=== PATIENT | female | born 1980 | race Caucasian/White ===

== ENCOUNTER 2016-08-18 08:57 | Emergency (ER) | payer OTHER ==
[~2016-08-18] VITALS: Ht 170.2 cm; Wt 140.2 kg
[~2016-08-18 08:57] MED LIST: ABILIFY20 M1 PO; ABILIFY30 M1 PO; ATIVAN1 MG PO; CARAFATE1 GM; CARVEDILOL6.25 M1 PO; HYDROCHLOROTHIA25 MG PO; NOR10T PO; PAXIL CR25 MG PO; PAXIL40 MG PO; PRILOSEC40 MG PO; TRAZODONE50 M1 PO; XANAX1 MG PO
[2016-08-18 11:15] LABS: BASOPHIL % 0.5 % (0-2); PLATELET COUNT 226 x10^3mcL (130-400)
[2016-08-18 11:17] LABS: RED CELL DISTRIBUTION WIDTH 21.1 % (11.5-14.5)
[2016-08-18 11:21] LABS: CALCIUM 8.3 mg/dL (8.5-10.1); CARBON DIOXIDE 29.5 mmol/L (21-32); CHLORIDE SERUM 105 mmol/L (98-107); CREATININE SERUM 0.6 mg/dL (0.6-1.0); GFR1 > 60 mL/min; GLUCOSE SERUM 91 mg/dL (74-106); POTASSIUM SERUM 3.9 mmol/L (3.5-5.1); SODIUM SERUM 142 mmol/L (136-145)
[2016-08-18 11:26] LABS: ALKALINE PHOSPHATASE 76 U/L (46-116); ALT/SGPT 19 U/L (14-59); AST/SGOT 16 U/L (15-37); BILIRUBIN TOTAL 0.7 mg/dL (0.20-1.00); LIPASE 86 IU/L (73-393)
[2016-08-18 11:28] LABS: ALBUMIN 3.1 g/dL (3.4-5.0)
[2016-08-18 11:49] LABS: microscopic required? YES
[2016-08-18 11:50] LABS: UA SPECIFIC GRAVITY 1.015 (1.005-1.035)
[2016-08-18 11:51] LABS: urine erythrocyte TRACE (NEGATIVE)
[2016-08-18 12:04] LABS: rbc morphology (normal/abnorm) ABNORMAL (NORMAL)
[2016-08-18 12:35] VITALS: BP 109/84
== END 2016-08-18 12:35 | disposition home or self-care (01) ==
LOC: ED 08:57
PROVIDERS: Emergency Medicine
DX: N39.0 Urinary tract infection, site not specified (principal); M79.1 Myalgia; K21.9 Gastro-esophageal reflux disease without esophagitis; F31.9 Bipolar disorder, unspecified; G47.9 Sleep disorder, unspecified; Z79.891 Long term (current) use of opiate analgesic; Z79.899 Other long term (current) drug therapy; Z88.1 Allergy status to other antibiotic agents; Z88.2 Allergy status to sulfonamides; Z88.0 Allergy status to penicillin
CPT/HCPCS: J1885; Q0162

== ENCOUNTER 2016-08-27 15:05 | Emergency (ER) | payer OTHER ==
[2016-08-27 16:39] LABS: BASOPHIL % 0.8 % (0-2); PLATELET COUNT 264 x10^3mcL (130-400)
[2016-08-27 16:40] LABS: RED CELL DISTRIBUTION WIDTH 20.5 % (11.5-14.5)
[2016-08-27 16:47] LABS: CALCIUM 8.8 mg/dL (8.5-10.1); CHLORIDE SERUM 107 mmol/L (98-107); CREATININE SERUM 0.7 mg/dL (0.6-1.0); GFR1 > 60 mL/min; GLUCOSE SERUM 84 mg/dL (74-106); POTASSIUM SERUM 4.1 mmol/L (3.5-5.1); SODIUM SERUM 141 mmol/L (136-145)
[2016-08-27 17:16] VITALS: BP 147/77
== END 2016-08-27 17:16 | disposition home or self-care (01) ==
LOC: ED 15:05
PROVIDERS: Emergency Medicine
DX: F41.1 Generalized anxiety disorder (principal); F31.9 Bipolar disorder, unspecified
CPT/HCPCS: J1885

== ENCOUNTER 2016-11-24 19:49 | Emergency (ER) | payer OTHER ==
[~2016-11-24] VITALS: Ht 160 cm; Wt 136.1 kg
[2016-11-24 20:58] LABS: BASOPHIL % 1.1 % (0-2); PLATELET COUNT 276 x10^3mcL (130-400)
[2016-11-24 21:01] LABS: RED CELL DISTRIBUTION WIDTH 14.7 % (11.5-14.5)
[2016-11-24 21:06] LABS: CALCIUM 8.5 mg/dL (8.5-10.1); CARBON DIOXIDE 29.2 mmol/L (21-32); CHLORIDE SERUM 110 mmol/L (98-107); CREATININE SERUM 0.8 mg/dL (0.6-1.0); GFR1 > 60 mL/min; GLUCOSE SERUM 93 mg/dL (74-106); POTASSIUM SERUM 3.7 mmol/L (3.5-5.1); SODIUM SERUM 145 mmol/L (136-145)
[2016-11-24 21:11] LABS: ALBUMIN 3.2 g/dL (3.4-5.0); ALKALINE PHOSPHATASE 77 U/L (46-116); ALT/SGPT 22 U/L (14-59); AST/SGOT 16 U/L (15-37); BILIRUBIN TOTAL 0.34 mg/dL (0.20-1.00); TOTAL PROTEIN, SERUM 7.1 g/dL (6.4-8.2)
[2016-11-24 21:22] LABS: UA SPECIFIC GRAVITY <=1.005 (1.005-1.035); microscopic required? YES; urine erythrocyte 3+ (NEGATIVE)
[2016-11-24 22:32] VITALS: BP 126/70
== END 2016-11-24 22:32 | disposition home or self-care (01) ==
LOC: ED 19:49
PROVIDERS: Emergency Medicine
DX: N39.0 Urinary tract infection, site not specified (principal); J45.909 Unspecified asthma, uncomplicated; I10 Essential (primary) hypertension; Z90.49 Acquired absence of other specified parts of digestive tract; Z88.0 Allergy status to penicillin; Z88.2 Allergy status to sulfonamides; Z88.8 Allergy status to other drugs, medicaments and biological substances
CPT/HCPCS: 36415; J1885; J2270; Q0162

== ENCOUNTER 2016-12-02 18:11 | Emergency (ER) | payer OTHER ==
[~2016-12-02] VITALS: Ht 167.6 cm; Wt 140.2 kg
[2016-12-02 19:09] LABS: UA SPECIFIC GRAVITY 1.025 (1.005-1.035); microscopic required? YES; urine erythrocyte NEGATIVE (NEGATIVE)
[2016-12-02 19:26] LABS: AMPHETAMINE QUAL UR NONE DETECTED (NEG <=1000)
[2016-12-02 19:51] LABS: BASOPHIL % 0.6 % (0-2); PLATELET COUNT 283 x10^3mcL (130-400)
[2016-12-02 19:53] LABS: RED CELL DISTRIBUTION WIDTH 15.1 % (11.5-14.5)
[2016-12-02 20:09] LABS: CALCIUM 8.4 mg/dL (8.5-10.1); CARBON DIOXIDE 23.6 mmol/L (21-32); CHLORIDE SERUM 106 mmol/L (98-107); CREATININE SERUM 0.7 mg/dL (0.6-1.0); GFR1 > 60 mL/min; GLUCOSE SERUM 94 mg/dL (74-106); POTASSIUM SERUM 3.4 mmol/L (3.5-5.1); SODIUM SERUM 137 mmol/L (136-145)
[2016-12-02 20:12] LABS: ALBUMIN 3.3 g/dL (3.4-5.0); ALKALINE PHOSPHATASE 83 U/L (46-116); ALT/SGPT 55 U/L (14-59); AMYLASE 33 U/L (25-115); AST/SGOT 44 U/L (15-37); BILIRUBIN TOTAL 0.5 mg/dL (0.20-1.00); LIPASE 120 IU/L (73-393); TOTAL PROTEIN, SERUM 7.6 g/dL (6.4-8.2)
[2016-12-02 21:47] VITALS: BP 103/52
== END 2016-12-02 21:47 | disposition home or self-care (01) ==
LOC: ED 18:11
PROVIDERS: Emergency Medicine
DX: K59.00 Constipation, unspecified (principal); F11.20 Opioid dependence, uncomplicated; E46 Unspecified protein-calorie malnutrition; I10 Essential (primary) hypertension; E66.01 Morbid (severe) obesity due to excess calories; Z88.0 Allergy status to penicillin; Z88.2 Allergy status to sulfonamides
CPT/HCPCS: 83880; J1885; J2405; J7030

== ENCOUNTER 2017-01-22 00:17 | Inpatient (IN) | payer OTHER ==
[~2017-01-22] VITALS: Ht 167.6 cm; Wt 141.5 kg
[~2017-01-22 00:17] MED LIST changes: +PRILOSEC OTC20 M1; -PRILOSEC40 MG PO
--- NOTE | 2017-01-22 00:51 | NUR ---
DR NOLAND AT BEDSIDE FOR MSE.
--- NOTE | 2017-01-22 01:10 | NUR ---
PT PICKED UP BY CT VIA GURNEY NO SX OF DISTRESS NOTED.
--- NOTE | 2017-01-22 01:24 | NUR ---
PT AMBULATED SELF TO RESTROOM WITH SLOW EVEN AND STEADY GAIT.
--- NOTE | 2017-01-22 01:34 | NUR ---
PT MEDICATED PER DR NOLNAD ORDERS. PT EDUCATED ON MEDS AND DENIES ALLERGIES TO MED. PT IV SITE PATENT WITH NO SX OF INFILTRATION NOTED. PT AAOX4, BREATHING WITHOUT DIFFICULTY NO SX OF DISTRESS NOTED.
--- NOTE | 2017-01-22 01:35 | NUR ---
FARM MACHINE OPERATOR AT BEDSIDE.
--- NOTE | 2017-01-22 01:58 | NUR ---
DR NOLAND AT BEDSIDE DISCUSSING PLAN OF CARE.
[2017-01-22 02:02] LABS: AMPHETAMINE QUAL UR NONE DETECTED (NEG <=1000)
[2017-01-22] MEDS ORDERED: DIVALPROEX SOD250 M2 PO (02:20)
[2017-01-22] MEDS ORDERED: TRAMADOL HCL50 MG PO (02:20)
[2017-01-22 02:31] LABS: CALCIUM 8.9 mg/dL (8.5-10.1); CARBON DIOXIDE 26.2 mmol/L (21-32); CHLORIDE SERUM 105 mmol/L (98-107); CREATININE SERUM 0.8 mg/dL (0.6-1.0); GFR1 > 60 mL/min; GLUCOSE SERUM 86 mg/dL (74-106); POTASSIUM SERUM 3.3 mmol/L (3.5-5.1); SODIUM SERUM 140 mmol/L (136-145)
--- NOTE | 2017-01-22 02:33 | NUR ---
XRAY AT BEDSIDE. PT MEDICATED PER DR NOLAND ORDERS. PT EDUCATED ON MED AND IS IN SEMIFOWLERS POSITION. NO SX OF DIFFICULTY SWALLOWING NOTED. PT AAOX4, BREATHING E/U NO SX OF DISTRESS NOTED.
[2017-01-22 02:34] LABS: BASOPHIL % 8.5 % (0-2); PLATELET COUNT 284 x10^3mcL (130-400); RED CELL DISTRIBUTION WIDTH 14.6 % (11.5-14.5)
[2017-01-22 02:36] LABS: ALBUMIN 3.6 g/dL (3.4-5.0); ALKALINE PHOSPHATASE 80 U/L (46-116); ALT/SGPT 24 U/L (14-59); AST/SGOT 18 U/L (15-37); BILIRUBIN TOTAL 0.42 mg/dL (0.20-1.00); TOTAL PROTEIN, SERUM 7.9 g/dL (6.4-8.2)
[2017-01-22 03:41] VITALS: BP 103/46
--- NOTE | 2017-01-22 03:50 | NUR ---
RECEIVED PT FROM ED VIA [facility]RA. AAOX4. TELE #7. NSR. DENIES CP/PRESSURE AT THIS TIME. PULSES STRONG BILAT. EDEMA NOTED TO BILATERAL EXTREMITIES. LUNG SOUNDS CTA BILAT. DENIES SOB ON RA. BOWEL SOUNDS ACTIVE X4. GENERALIZED WEAKNESS. REQUESTS ASSISTANCE TO USE RESTROOM. SKIN INTACT. MILD REDNESS TO SKIN FOLDS. IV TO RAC. PATENT AND INFUSING WELL. PT COMPLAINS OF HEADACHE PAIN 10/10. WILL MEDICATE VIA PRN PAIN MEDICATION. PT COMPLAINS OF DIZZINESS WELL. BED IN LOWEST POSITION. CALL LIGHT WITHIN REACH. WILL CONTINUE TO MONITOR
[2017-01-22 04:19] LABS: CHOLESTEROL/HDL RATIO 3.1; PHOSPHOROUS 3.7 mg/dL (2.5-4.9)
[2017-01-22 05:48] VITALS: BP 104/49
--- NOTE | 2017-01-22 07:45 | NUR ---
PT LAYING IN BED. A/OX3. NO SIGN OF ACUTE DISTRESS. BED IN LOWEST POSITION. CALL LIGHT WITHIN REACH. WILL CONTINUE TO MONITOR.
[2017-01-22 08:00] VITALS: BP 160/43
[2017-01-22 09:13] LABS: RED BLOOD CELLS 4.01 M/mm3 (4.10-5.10)
[2017-01-22 09:17] LABS: T3 TOTAL 1.34 ng/mL
[2017-01-22 09:27] LABS: FREE T4 1.16 ng/dL (0.76-1.46); FREE THYROXINE INDEX 3.1 ug/dL (1.4-4.5); T4(THYROXINE) 8.9 ug/dL (4.7-13.3)
[2017-01-22 09:31] VITALS: BP 100/60
[2017-01-22 09:42] LABS: TOTAL IRON BINDING CAPACITY 277 ug/dL (250-450)
[2017-01-22 09:46] LABS: IRON 25 ug/dL (50-170)
--- NOTE | 2017-01-22 12:10 | NUR ---
PT SLEEPING. NO SIGN OF ACUTE DISTRESS. IV FLUIDS FLOWING. CALL LIGHT WITHIN REACH. BED IN LOW POSITION. WILL CONTINUE TO MONITOR.
[2017-01-22 14:41] LABS: UA SPECIFIC GRAVITY 1.015 (1.005-1.035); microscopic required? YES; urine erythrocyte 3+ (NEGATIVE)
[2017-01-22 16:55] VITALS: BP 113/50
--- NOTE | 2017-01-22 18:29 | NUR ---
PATIENT LAYING IN BED. PAIN IN HEAD DECREASED, TOLERABLE. NO SIGN OF ACUTE DISTRESS. NO COMPLAINT OF DIZZINESS. NO INCREASED WEAKNESS. A/OX3. BED IN LOW POSITION. CALL LIGHT WITHIN REACH. WILL ENDORSE TO ONCOMING SHIFT.
--- NOTE | 2017-01-22 19:16 | NUR ---
RECEIVED PT FROM PREVIOUS SHIFT. AAOX4. TELE #7. DENIES CP/PRESSURE AT THIS TIME. PULSES PRESENT BILAT. BILAT EDEMATOUS EXTREMITIES. LUNG SOUNDS CTA BILAT. DENIES SOB ON RA. BOWEL SOUNDS ACTIVE X4. GEN WEAKNESS. REQUESTS ASSISTANCE TO RESTROOM. SKIN INTACT. REDNESS TO SKIN FOLDS PRESENT. IV TO RAC. PATENT AND INTACT. INFUSING WELL. NS @50ML/HR. BED IN LOWEST POSITION. CALL LIGHT WITHIN REACH. WILL CONTINUE TO MONITOR
[2017-01-22 20:24] VITALS: BP 105/57
--- NOTE | 2017-01-23 00:28 | NUR ---
PT SLEEPING IN BED. NO S/S OF RESP DISTRESS. CALL LIGHT WITHIN REACH. WILL CONINUE TO MONITOR
--- NOTE | 2017-01-23 03:09 | NUR ---
IN TO CHECK ON PT. AWAKE IN BED. COMPLAINING OF HEADACHE PAIN 10/10. WILL MEDICATE PER EMAR.
[2017-01-23 04:49] VITALS: BP 132/67
--- NOTE | 2017-01-23 05:00 | NUR ---
PT RESTING IN BED. DENIES SOB AND ANY HEADACHE PAIN AT THIS TIME. IV INTACT AND INFUSING WELL. HAND RUBBER TIRE AND TUBES SUPERVISOR EVEN AND STRONG. NO ARM/FOOT DROP NOTED. SPEECH CLEAR AND APPROPRIATE FOR SITUATION. FACE/TONGUE SYMMETRICAL. CALL LIGHT WITHIN REACH. BED IN LOWEST POSITION. WILL CONTINUE TO MONITOR AND ENDORSE CARE TO ONCOMING SHIFT
[2017-01-23 06:04] LABS: BASOPHIL % 0.8 % (0-2); PLATELET COUNT 224 x10^3mcL (130-400)
[2017-01-23 06:37] LABS: CALCIUM 7.7 mg/dL (8.5-10.1); CARBON DIOXIDE 26.9 mmol/L (21-32); CHLORIDE SERUM 110 mmol/L (98-107); CREATININE SERUM 0.7 mg/dL (0.6-1.0); GFR1 > 60 mL/min; GLUCOSE SERUM 90 mg/dL (74-106); MAGNESIUM 1.8 mg/dL (1.8-2.4); PHOSPHOROUS 3.6 mg/dL (2.5-4.9); POTASSIUM SERUM 3.8 mmol/L (3.5-5.1); RED CELL DISTRIBUTION WIDTH 15.5 % (11.5-14.5); SODIUM SERUM 140 mmol/L (136-145)
--- NOTE | 2017-01-23 07:24 | NUR ---
PATIENT RECEIVED AND SEEN. PATIENT IS AAOX4. APPEARS CALM. NO C/O DIZZINESS AT THIS TIME. TELE MONITOR [address] PATIENT HAS SCDS IN PLACE. RESPIRATIONS EVEN AND UNLABORED ON ROOM AIR. CTA. DENIES NAUSEA AT THIS TIME. PATIENT IS UNDERGOING MENSES. PATIENT HAS MILD GENERALIZED WEAKNESS. NS INFUSING AT 50CC/HR IN RAC. PATIENT C/O HEADACHE, WILL BE MEDICATED PRN. CALL LIGHT WITHIN REACH. ALL SAFETY MEASURES IN PLACE. WILL CONTINUE TO MONITOR.
[2017-01-23 08:50] VITALS: BP 122/57
[2017-01-23 10:23] VITALS: Ht 167.6 cm; Wt 141.5 kg
--- NOTE | 2017-01-23 11:38 | NUR ---
ECHO COMPLETED. PT EXPRESSED TENDERNESS UNDER LEFT BREAST DURNING EXAM. NO LESION NOTED. NURSE NOTIFIED
[2017-01-23 12:04] VITALS: BP 124/62
--- NOTE | 2017-01-23 13:00 | NUR ---
PATIENT RESTING IN BED. NO SIGNS OF ACUTE DISTRESS AT THIS TIME. NO SIGNIFICANT CHANGES TO PATIENT CONDITION. PATIENT DENIES ANY NEEDS AT THIS TIME. CALL LIGHT WITHIN REACH. ALL SAFETY MEASURES IN PLACE. WILL CONTINUE TO MONITOR.
[2017-01-23 17:49] VITALS: BP 120/59
--- NOTE | 2017-01-23 19:25 | NUR ---
REPORT GIVEN TO NIGHT NURSE. PATIENT DOES NOT APPEAR IN ACUTE DISTRESS AT THIS TIME. PATIENT RESTING IN BED. CALL LIGHT WITHIN REACH. NO SIGNIFICANT CHANGES TO PATIENT CONDITION. PATIENT AAOX4. ALL SAFETY MEASURES IN PLACE.
--- NOTE | 2017-01-23 20:05 | NUR ---
RECEIVED PT IN BED AWAKE, ALERT, OREINTED X4. SPEECH CLEAR. ABLE TO MAKE NEEDS KNOWN. IVF INFUSING NS AT 50ML/HR TO RAC. LUNG SOUNDS DIMINISHED. TELE 7 SHOWS NSR WITH HR AT 76. DENIES CHEST PAIN. PT C/O MILD HEADACHE TO LEFT SIDE, PT ALSO C/O TIGHTNESS TO LEFT ARM AND HAND ONLY. PT ALSO STATES SHE HAS PATCHES OF BALD SPOTS TO LEFT SIDE OF HEAD. TRACE EDEMA TO BLE. PT IS MENSTRATING AT THIS TIME. BS ACTIVE IN ALL FOUR QUADS. NO ABD PAIN NOTED. ABD IS OBESE. LAST BM TODAY, FORMED. SHIFT ASSESSMENT COMPLETED. CALL LIGHT WITHIN REACH. BED IS LOWEST POSITION. WILL CONTINUE TO MONITOR CLOSELY.
[2017-01-23 20:42] VITALS: BP 118/56
--- NOTE | 2017-01-23 22:05 | NUR ---
NORCO GIVEN AT THIS TIME FOR HEADACHE. FOLLOWED UP ON FLU VACCINE, OFFERED AT THIS TIME AND PT STATES MAYBE SHE WILL GET FLU VACCINE TOMORROW.
--- NOTE | 2017-01-24 01:50 | NUR ---
PT APPEARS TO BE SLEEPING IN NO DISTRESS. IVF ONGOING. CALL LIGHT WITHIN REACH. WILL CONTINUE TO MONITOR CLOSELY.
--- NOTE | 2017-01-24 02:18 | NUR ---
PT C/O PAIN TO ABD AND STATES SHE STILL HAS A HEADACHE. MORPHINE GIVEN ORDERED. WILL CONTINUE TO MONITOR CLOSELY.
[2017-01-24 05:46] VITALS: BP 123/77
[2017-01-24 06:03] LABS: BASOPHIL % 0.6 % (0-2)
[2017-01-24 06:13] LABS: PLATELET COUNT 219 x10^3mcL (130-400)
[2017-01-24 06:27] LABS: RED CELL DISTRIBUTION WIDTH 15.6 % (11.5-14.5)
[2017-01-24 06:35] LABS: CALCIUM 8.3 mg/dL (8.5-10.1); CARBON DIOXIDE 25.4 mmol/L (21-32); CHLORIDE SERUM 109 mmol/L (98-107); CREATININE SERUM 0.7 mg/dL (0.6-1.0); GFR1 > 60 mL/min; GLUCOSE SERUM 94 mg/dL (74-106); MAGNESIUM 1.6 mg/dL (1.8-2.4); PHOSPHOROUS 4.5 mg/dL (2.5-4.9); POTASSIUM SERUM 3.6 mmol/L (3.5-5.1); SODIUM SERUM 142 mmol/L (136-145)
--- NOTE | 2017-01-24 06:35 | NUR ---
ALL DUE MEDS GIVEN ORDERED. IVF ONGOING. ALL NEEDS TENDED TO. WILL ENDORSE TO INCOMING SHIFT.
--- NOTE | 2017-01-24 07:15 | NUR ---
RECEIVED Pt. AAOX4 DENIES DIZZINESS, RESPIRATIONS EVEN AND UNLABORED REPORTED MILD TOLERABLE HEADACHE AT THIS TIME WILL CONTINUE TO MONITOR. TELE IN PLACE DENIES CHEST PAIN/PRESSURE. IVF RUNNING TO IV RIGHT AC PATENT AND INTACT. REDNESS TO Lt. BREAST FOLD NO DRAINAGE/SWELLING NOTED. BED LOW/LOCKED. CALL LIGHT IN REACH. WILL CONTINUE TO MONITOR.
[2017-01-24 09:13] VITALS: BP 144/82
--- NOTE | 2017-01-24 09:27 | NUR ---
Pt. C/O HEADACHE 7/10 SCALE, NORCO ADMINISTERED WILL CONTINUE TO MONITOR.
--- NOTE | 2017-01-24 11:00 | NUR ---
VERBALIZED RELIEF POST NORCO.
[2017-01-24 13:28] VITALS: BP 149/94
--- NOTE | 2017-01-24 14:19 | NUR ---
Pt. C/O HEADACHE 6/10 SCALE, ULTRAM ADMINISTERED.
--- NOTE | 2017-01-24 16:04 | NUR ---
Pt. APPEARS TO BE SLEEPING NO SIGNS OF PAIN/DISCOMFORT AT THIS TIME POST ULTRAM.
[2017-01-24 17:16] VITALS: BP 129/54
[2017-01-24 17:50] VITALS: BP 122/69
--- NOTE | 2017-01-24 17:55 | NUR ---
Pt. C/O SINGH/NECK PAIN 6/10 SCALE, NORCO ADMINISTERED.
--- NOTE | 2017-01-24 18:31 | NUR ---
Pt. AAOX4 RESPIRATIONS EVEN AND UNLABORED, VERBALIZED SOME RELIEF POST NORCO, NO DISTRESS NOTED. TELE IN [place]. IVF RUNNING TO IV RIGHT AC PATENT AND INTACT. BED LOW/LOCKED. CALL LIGHT IN REACH.
--- NOTE | 2017-01-24 19:50 | NUR ---
PT. AWAKE, ALERT, ORIENTED X4. DENIES HEADACHE OR DIZZINESS. BREATH SOUNDS CLEAR THROUGHOUT LUNG JARA, RESP. EVEN, UNLABORED. NO SOB NOTED. DENIES CHESTPAIN OR DISCOMFORT. TRACE EDEMA TO BLE. PEDAL PULSES MODERATE. ABD. SOFT AND ROND, OBESE. BOWEL SOUNDS ACTIVE. IVF INFUSING WELL. CALL LIGHT WITHIN REACH.
[2017-01-24 21:25] VITALS: BP 126/71
--- NOTE | 2017-01-25 01:32 | NUR ---
PT. SLEEPING. NO C/O PAIN AT THIS TIME. IVF INFUSING WELL. CALL LIGHT WITHIN REACH.
[2017-01-25 05:23] VITALS: BP 103/50
--- NOTE | 2017-01-25 05:28 | NUR ---
PT. C/O LT. FACIAL PAIN AND HEADACHE. PRN NORCO GIVEN. WILL MONITOR.
[2017-01-25 06:06] LABS: BASOPHIL % 0.7 % (0-2); PLATELET COUNT 228 x10^3mcL (130-400)
[2017-01-25 06:18] LABS: RED CELL DISTRIBUTION WIDTH 15.6 % (11.5-14.5)
[2017-01-25 06:50] LABS: CALCIUM 8.3 mg/dL (8.5-10.1); CARBON DIOXIDE 28.3 mmol/L (21-32); CHLORIDE SERUM 108 mmol/L (98-107); CREATININE SERUM 0.8 mg/dL (0.6-1.0); GFR1 > 60 mL/min; GLUCOSE SERUM 90 mg/dL (74-106); MAGNESIUM 1.6 mg/dL (1.8-2.4); POTASSIUM SERUM 3.9 mmol/L (3.5-5.1); SODIUM SERUM 144 mmol/L (136-145)
--- NOTE | 2017-01-25 07:26 | NUR ---
RECEIVED PT FROM NIGHT NURSE IN NO ACUTE DISTRESS. PT ASLEEP IN BED, RESPIRATIONS EVEN AND UNLABORED ON RA. IVF INFUSING AT BEDSIDE. BED IN LOWEST POSITION. CALL LIGHT WITHIN REACH. WILL CONTINUE TO MONITOR.
[2017-01-25 08:52] VITALS: BP 142/81
[2017-01-25] MEDS ORDERED: APAP/HYDROCODON1 T13 PO (10:28)
[2017-01-25] MEDS ORDERED: SERO100 PO (10:30)
[2017-01-25 11:47] VITALS: BP 125/74
[2017-01-25 12:40] VITALS: BP 142/81
--- NOTE | 2017-01-25 13:40 | NUR ---
PT D/C TO HOME IN NO ACUTE DISTRESS. RESPIRATIONS EVEN AND UNLABORED ON RA. AAOX4. IV D/C INTACT, TELE REMOVED. D/C INSTRUCTIONS GIVEN, NEW PRESCRIPTION GIVEN, INSTRUCTED TO F/U WITH PCP.
== END 2017-01-25 13:40 | disposition home or self-care (01) | DRG 48 ==
LOC: ED 00:17 → DU 02:14
PROVIDERS: Emergency Medicine; Family Medicine; ADMIT Family Medicine
DX: G90.9 Disorder of the autonomic nervous system, unspecified (principal); F31.5 Bipolar disorder, current episode depressed, severe, with psychotic features; Z68.43 Body mass index [BMI] 50.0-59.9, adult; N39.0 Urinary tract infection, site not specified; M94.0 Chondrocostal junction syndrome [Tietze]; E87.6 Hypokalemia; D50.9 Iron deficiency anemia, unspecified; Z88.0 Allergy status to penicillin; Z88.2 Allergy status to sulfonamides; Z88.8 Allergy status to other drugs, medicaments and biological substances; F41.1 Generalized anxiety disorder
CPT/HCPCS: 82962; 83880; 84439; J1200; J1956; J2270; J2405; J2765; J7030; Q0092

== ENCOUNTER 2017-03-30 11:59 | Emergency (ER) | payer OTHER ==
[~2017-03-30] VITALS: Ht 167.6 cm; Wt 137.9 kg
[~2017-03-30 11:59] MED LIST changes: +APAP/HYDROCODON1 T13 PO; +DIVALPROEX SOD250 M2 PO; +SERO100 PO; +TRAMADOL HCL50 MG PO
[2017-03-30 12:33] VITALS: BP 141/88; Ht 167.6 cm; Wt 137.9 kg
[2017-03-30 16:03] LABS: BASOPHIL % 0.7 % (0-2); PLATELET COUNT 318 x10^3mcL (130-400); RED CELL DISTRIBUTION WIDTH 15.7 % (11.5-14.5)
[2017-03-30 16:11] LABS: CALCIUM 8.7 mg/dL (8.5-10.1); CARBON DIOXIDE 27.6 mmol/L (21-32); CHLORIDE SERUM 104 mmol/L (98-107); CREATININE SERUM 0.7 mg/dL (0.6-1.0); GFR1 > 60 mL/min; GLUCOSE SERUM 88 mg/dL (74-106); SODIUM SERUM 140 mmol/L (136-145)
[2017-03-30 16:15] LABS: ALBUMIN 3.5 g/dL (3.4-5.0); ALKALINE PHOSPHATASE 88 U/L (46-116); ALT/SGPT 24 U/L (14-59); AST/SGOT 18 U/L (15-37); BILIRUBIN TOTAL 0.4 mg/dL (0.20-1.00); TOTAL PROTEIN, SERUM 7.8 g/dL (6.4-8.2)
== END 2017-03-30 16:51 | disposition home or self-care (01) ==
LOC: ED 11:59
PROVIDERS: Emergency Medicine
DX: N12 Tubulo-interstitial nephritis, not specified as acute or chronic (principal); K21.9 Gastro-esophageal reflux disease without esophagitis; I10 Essential (primary) hypertension; J45.909 Unspecified asthma, uncomplicated; Z88.0 Allergy status to penicillin; Z88.8 Allergy status to other drugs, medicaments and biological substances
CPT/HCPCS: 36415

== ENCOUNTER 2017-04-22 13:29 | Emergency (ER) | payer OTHER ==
[~2017-04-22] VITALS: Ht 167.6 cm; Wt 139.7 kg
[2017-04-22 13:39] VITALS: Ht 167.6 cm; Wt 139.7 kg
[2017-04-22 15:18] VITALS: BP 132/64
== END 2017-04-22 15:18 | disposition home or self-care (01) ==
LOC: ED 13:29
DX: J06.9 Acute upper respiratory infection, unspecified (principal); I10 Essential (primary) hypertension; K21.9 Gastro-esophageal reflux disease without esophagitis; Z88.0 Allergy status to penicillin; Z88.2 Allergy status to sulfonamides
CPT/HCPCS: 87804

== ENCOUNTER 2017-06-04 19:11 | Emergency (ER) | payer OTHER ==
[~2017-06-04] VITALS: Ht 167.6 cm; Wt 140.2 kg
[2017-06-04 19:52] VITALS: Ht 167.6 cm; Wt 140.2 kg
[2017-06-04 22:57] VITALS: BP 145/82
== END 2017-06-04 22:57 | disposition home or self-care (01) ==
LOC: ED 19:11
DX: R07.89 Other chest pain (principal); I10 Essential (primary) hypertension; K21.9 Gastro-esophageal reflux disease without esophagitis; F31.9 Bipolar disorder, unspecified; Z88.1 Allergy status to other antibiotic agents; Z88.0 Allergy status to penicillin; Z90.49 Acquired absence of other specified parts of digestive tract
CPT/HCPCS: J1885

== ENCOUNTER 2017-06-26 16:35 | Emergency (ER) | payer OTHER ==
[~2017-06-26] VITALS: Ht 165.1 cm; Wt 137.0 kg
[2017-06-26 16:46] VITALS: Ht 165.1 cm; Wt 137.0 kg
[2017-06-26 19:06] VITALS: BP 145/76
== END 2017-06-26 20:25 | disposition home or self-care (01) ==
LOC: ED 16:35
DX: M54.2 Cervicalgia (principal); I10 Essential (primary) hypertension; K21.9 Gastro-esophageal reflux disease without esophagitis; J45.909 Unspecified asthma, uncomplicated; Z88.0 Allergy status to penicillin; Z90.49 Acquired absence of other specified parts of digestive tract; Z88.8 Allergy status to other drugs, medicaments and biological substances
CPT/HCPCS: Q0092

== ENCOUNTER 2017-07-16 19:48 | Emergency (ER) | payer OTHER ==
[~2017-07-16] VITALS: Ht 165.1 cm; Wt 143.3 kg
[2017-07-16 20:35] VITALS: BP 127/78; Ht 165.1 cm; Wt 143.3 kg
== END 2017-07-16 21:49 | disposition home or self-care (01) ==
LOC: ED 19:48
DX: T62.91XA Toxic effect of unspecified noxious substance eaten as food, accidental (unintentional), initial encounter (principal); R10.13 Epigastric pain; R19.7 Diarrhea, unspecified; I10 Essential (primary) hypertension; K21.9 Gastro-esophageal reflux disease without esophagitis; F20.9 Schizophrenia, unspecified; D64.9 Anemia, unspecified; Z90.49 Acquired absence of other specified parts of digestive tract; Z88.0 Allergy status to penicillin; Z88.2 Allergy status to sulfonamides; Y92.89 Other specified places as the place of occurrence of the external cause
CPT/HCPCS: J0500; Q0162

== ENCOUNTER 2017-08-09 23:49 | Emergency (ER) | payer OTHER ==
[~2017-08-09] VITALS: Ht 167.6 cm; Wt 143.3 kg
[2017-08-09 23:53] VITALS: BP 141/90; Ht 167.6 cm; Wt 143.3 kg
== END 2017-08-10 01:57 | disposition left against medical advice (07) ==
LOC: ED 23:49
DX: Z53.21 Procedure and treatment not carried out due to patient leaving prior to being seen by health care provider (principal)

== ENCOUNTER 2017-08-21 21:54 | Emergency (ER) | payer OTHER ==
[~2017-08-21] VITALS: Ht 167.6 cm; Wt 141.5 kg
[2017-08-21 22:24] VITALS: Ht 167.6 cm; Wt 141.5 kg
[2017-08-21 23:21] VITALS: BP 142/87
== END 2017-08-21 23:21 | disposition left against medical advice (07) ==
LOC: ED 21:54
DX: Z53.21 Procedure and treatment not carried out due to patient leaving prior to being seen by health care provider (principal)

== ENCOUNTER 2017-09-14 15:45 | Emergency (ER) | payer OTHER ==
[~2017-09-14] VITALS: Ht 167.6 cm; Wt 140.2 kg
[2017-09-14 15:49] VITALS: Ht 167.6 cm; Wt 140.2 kg
[2017-09-14 17:15] LABS: BASOPHIL % 0.9 % (0-2); PLATELET COUNT 295 x10^3mcL (130-400)
[2017-09-14 17:17] LABS: RED CELL DISTRIBUTION WIDTH 17.6 % (11.5-14.5)
[2017-09-14 17:24] LABS: CALCIUM 8.6 mg/dL (8.5-10.1); CARBON DIOXIDE 29.9 mmol/L (21-32); CHLORIDE SERUM 107 mmol/L (98-107); CREATININE SERUM 0.7 mg/dL (0.6-1.0); GFR1 > 60 mL/min; GLUCOSE SERUM 84 mg/dL (74-106); POTASSIUM SERUM 3.9 mmol/L (3.5-5.1); SODIUM SERUM 142 mmol/L (136-145)
[2017-09-14 17:29] LABS: ALKALINE PHOSPHATASE 87 U/L (46-116); ALT/SGPT 21 U/L (14-59); AMYLASE 33 U/L (25-115); AST/SGOT 15 U/L (15-37); BILIRUBIN TOTAL 0.49 mg/dL (0.20-1.00); LIPASE 91 IU/L (73-393); TOTAL PROTEIN, SERUM 7.1 g/dL (6.4-8.2)
[2017-09-14 17:30] LABS: ALBUMIN 3.2 g/dL (3.4-5.0)
[2017-09-14 18:00] LABS: UA SPECIFIC GRAVITY <=1.005 (1.005-1.035); microscopic required? YES; urine erythrocyte NEGATIVE (NEGATIVE)
[2017-09-14 20:32] VITALS: BP 135/93
== END 2017-09-14 20:32 | disposition home or self-care (01) ==
LOC: ED 15:45
PROVIDERS: Specialist
DX: N12 Tubulo-interstitial nephritis, not specified as acute or chronic (principal); J45.909 Unspecified asthma, uncomplicated; I10 Essential (primary) hypertension; K21.9 Gastro-esophageal reflux disease without esophagitis; Z88.0 Allergy status to penicillin; Z88.1 Allergy status to other antibiotic agents; Z90.49 Acquired absence of other specified parts of digestive tract
CPT/HCPCS: 83880; J1885; J1956; J2270; J2405; Q0092

== ENCOUNTER 2017-10-15 12:48 | Emergency (ER) | payer OTHER ==
[~2017-10-15] VITALS: Ht 167.6 cm; Wt 142.4 kg
[2017-10-15 13:02] VITALS: Ht 167.6 cm; Wt 142.4 kg
[2017-10-15 15:20] VITALS: BP 135/89
== END 2017-10-15 15:20 | disposition home or self-care (01) ==
LOC: ED 12:48
DX: M79.1 Myalgia (principal); Z88.1 Allergy status to other antibiotic agents; F31.9 Bipolar disorder, unspecified; D64.9 Anemia, unspecified; K21.9 Gastro-esophageal reflux disease without esophagitis; F20.9 Schizophrenia, unspecified; Z90.49 Acquired absence of other specified parts of digestive tract; Z88.0 Allergy status to penicillin; Z88.2 Allergy status to sulfonamides
CPT/HCPCS: Q0092

== ENCOUNTER 2017-12-07 07:59 | Emergency (ER) | payer OTHER ==
[~2017-12-07] VITALS: Ht 170.2 cm; Wt 142.0 kg
[2017-12-07 08:06] VITALS: Ht 170.2 cm; Wt 142.0 kg
[2017-12-07 08:51] LABS: BASOPHIL % 0.6 % (0-2); PLATELET COUNT 275 x10^3mcL (130-400)
[2017-12-07 08:52] LABS: RED CELL DISTRIBUTION WIDTH 17.4 % (11.5-14.5)
[2017-12-07 09:03] LABS: CALCIUM 8.1 mg/dL (8.5-10.1); CARBON DIOXIDE 26.9 mmol/L (21-32); CHLORIDE SERUM 109 mmol/L (98-107); CREATININE SERUM 0.7 mg/dL (0.6-1.0); GFR1 > 60 mL/min; GLUCOSE SERUM 99 mg/dL (74-106); POTASSIUM SERUM 4.1 mmol/L (3.5-5.1); SODIUM SERUM 138 mmol/L (136-145)
[2017-12-07 09:08] LABS: ALKALINE PHOSPHATASE 65 U/L (46-116); ALT/SGPT 20 U/L (14-59); AMYLASE 36 U/L (25-115); AST/SGOT 14 U/L (15-37); BILIRUBIN TOTAL 0.2 mg/dL (0.20-1.00); LIPASE 188 IU/L (73-393); TOTAL PROTEIN, SERUM 6.8 g/dL (6.4-8.2)
[2017-12-07 10:17] LABS: microscopic required? YES; urine erythrocyte NEGATIVE (NEGATIVE)
[2017-12-07 12:18] VITALS: BP 141/80
== END 2017-12-07 12:18 | disposition home or self-care (01) ==
LOC: ED 07:59
PROVIDERS: Emergency Medicine
DX: R10.31 Right lower quadrant pain (principal); D50.9 Iron deficiency anemia, unspecified; F31.9 Bipolar disorder, unspecified; F20.9 Schizophrenia, unspecified; E66.01 Morbid (severe) obesity due to excess calories; R50.9 Fever, unspecified; R63.0 Anorexia; R11.0 Nausea; J45.909 Unspecified asthma, uncomplicated; I10 Essential (primary) hypertension; Z90.49 Acquired absence of other specified parts of digestive tract; Z88.0 Allergy status to penicillin; Z88.2 Allergy status to sulfonamides
CPT/HCPCS: 36415; Q0092

== ENCOUNTER 2017-12-26 16:55 | Emergency (ER) | payer OTHER ==
[~2017-12-26] VITALS: Ht 167.6 cm; Wt 142.0 kg
[2017-12-26 17:17] VITALS: Ht 167.6 cm; Wt 142.0 kg
[2017-12-26 18:48] LABS: BASOPHIL % 0.7 % (0-2); PLATELET COUNT 298 x10^3mcL (130-400); RED CELL DISTRIBUTION WIDTH 17.1 % (11.5-14.5)
[2017-12-26 18:58] LABS: CALCIUM 9.1 mg/dL (8.5-10.1); CARBON DIOXIDE 27.3 mmol/L (21-32); CHLORIDE SERUM 104 mmol/L (98-107); CREATININE SERUM 0.7 mg/dL (0.6-1.0); GFR1 > 60 mL/min; GLUCOSE SERUM 81 mg/dL (74-106); POTASSIUM SERUM 3.9 mmol/L (3.5-5.1); SODIUM SERUM 138 mmol/L (136-145)
[2017-12-26 19:03] LABS: ALBUMIN 3.4 g/dL (3.4-5.0); ALKALINE PHOSPHATASE 82 U/L (46-116); ALT/SGPT 22 U/L (14-59); AST/SGOT 13 U/L (15-37); BILIRUBIN TOTAL 0.3 mg/dL (0.20-1.00); LIPASE 164 IU/L (73-393)
[2017-12-26 23:37] VITALS: BP 141/93
== END 2017-12-26 23:37 | disposition home or self-care (01) ==
LOC: ED 16:55
PROVIDERS: Emergency Medicine
DX: N39.0 Urinary tract infection, site not specified (principal); R07.89 Other chest pain; J45.909 Unspecified asthma, uncomplicated; F31.9 Bipolar disorder, unspecified; I10 Essential (primary) hypertension; K21.9 Gastro-esophageal reflux disease without esophagitis; F20.9 Schizophrenia, unspecified; Z87.442 Personal history of urinary calculi; Z88.0 Allergy status to penicillin; Z88.2 Allergy status to sulfonamides; Z88.1 Allergy status to other antibiotic agents; Z90.49 Acquired absence of other specified parts of digestive tract; Z90.89 Acquired absence of other organs
CPT/HCPCS: 36415; J1885; Q0092

== ENCOUNTER 2018-01-29 19:39 | Emergency (ER) | payer OTHER ==
[~2018-01-29] VITALS: Ht 167.6 cm; Wt 144.7 kg
[2018-01-29 19:44] VITALS: Ht 167.6 cm; Wt 144.7 kg
[2018-01-29 20:37] LABS: BASOPHIL % 0.3 % (0-2); PLATELET COUNT 311 x10^3mcL (130-400)
[2018-01-29 20:39] LABS: RED CELL DISTRIBUTION WIDTH 17.5 % (11.5-14.5)
[2018-01-29 20:42] LABS: CALCIUM 8.4 mg/dL (8.5-10.1); CARBON DIOXIDE 26.1 mmol/L (21-32); CHLORIDE SERUM 104 mmol/L (98-107); CREATININE SERUM 0.7 mg/dL (0.6-1.0); GFR1 > 60 mL/min; GLUCOSE SERUM 79 mg/dL (74-106); POTASSIUM SERUM 3.7 mmol/L (3.5-5.1); SODIUM SERUM 138 mmol/L (136-145)
[2018-01-29 20:49] LABS: ALKALINE PHOSPHATASE 83 U/L (46-116); ALT/SGPT 24 U/L (14-59); AST/SGOT 16 U/L (15-37); BILIRUBIN TOTAL 0.5 mg/dL (0.20-1.00); LIPASE 124 IU/L (73-393); TOTAL PROTEIN, SERUM 7.6 g/dL (6.4-8.2)
[2018-01-29 20:50] LABS: ALBUMIN 3.3 g/dL (3.4-5.0)
[2018-01-29 21:18] VITALS: BP 151/77
== END 2018-01-29 22:49 | disposition home or self-care (01) ==
LOC: ED 19:39
PROVIDERS: Emergency Medicine
DX: N39.0 Urinary tract infection, site not specified (principal); J45.909 Unspecified asthma, uncomplicated; I10 Essential (primary) hypertension; F41.9 Anxiety disorder, unspecified; K21.9 Gastro-esophageal reflux disease without esophagitis; F32.9 Major depressive disorder, single episode, unspecified; F20.9 Schizophrenia, unspecified; Z90.49 Acquired absence of other specified parts of digestive tract; Z86.2 Personal history of diseases of the blood and blood-forming organs and certain disorders involving the immune mechanism; Z88.0 Allergy status to penicillin; Z88.2 Allergy status to sulfonamides; Z88.1 Allergy status to other antibiotic agents
CPT/HCPCS: J2270; J2405; J7030

== ENCOUNTER 2018-03-21 18:33 | Emergency (ER) | payer OTHER ==
[~2018-03-21] VITALS: Ht 167.6 cm; Wt 136.5 kg
[2018-03-21 18:37] VITALS: Ht 167.6 cm; Wt 136.5 kg
[2018-03-21 20:26] LABS: BASOPHIL % 0.5 % (0-2); PLATELET COUNT 327 x10^3mcL (130-400)
[2018-03-21 20:40] LABS: CALCIUM 8.7 mg/dL (8.5-10.1); CARBON DIOXIDE 26.8 mmol/L (21-32); CHLORIDE SERUM 105 mmol/L (98-107); CREATININE SERUM 0.7 mg/dL (0.6-1.0); GFR1 > 60 mL/min; GLUCOSE SERUM 102 mg/dL (74-106); POTASSIUM SERUM 4.3 mmol/L (3.5-5.1); SODIUM SERUM 141 mmol/L (136-145)
[2018-03-21 20:49] LABS: ALKALINE PHOSPHATASE 77 U/L (46-116); ALT/SGPT 24 U/L (14-59); AST/SGOT 15 U/L (15-37); BILIRUBIN TOTAL 0.2 mg/dL (0.20-1.00); TOTAL PROTEIN, SERUM 7.2 g/dL (6.4-8.2)
[2018-03-21 20:51] LABS: ALBUMIN 3.2 g/dL (3.4-5.0)
[2018-03-21 21:29] VITALS: BP 128/78
== END 2018-03-21 21:29 | disposition home or self-care (01) ==
LOC: ED 18:33
PROVIDERS: Emergency Medicine
DX: R07.89 Other chest pain (principal); R06.02 Shortness of breath; F31.9 Bipolar disorder, unspecified; K21.9 Gastro-esophageal reflux disease without esophagitis; F20.9 Schizophrenia, unspecified; Z86.2 Personal history of diseases of the blood and blood-forming organs and certain disorders involving the immune mechanism; Z90.49 Acquired absence of other specified parts of digestive tract; Z87.442 Personal history of urinary calculi; Z88.0 Allergy status to penicillin; Z88.2 Allergy status to sulfonamides; Z88.1 Allergy status to other antibiotic agents
CPT/HCPCS: J1885; Q0092

== ENCOUNTER 2018-05-06 13:04 | Emergency (ER) | payer OTHER ==
[~2018-05-06] VITALS: Ht 167.6 cm; Wt 145.6 kg
[2018-05-06 13:22] VITALS: Ht 167.6 cm; Wt 145.6 kg
[2018-05-06 16:10] VITALS: BP 116/58
== END 2018-05-06 16:10 | disposition home or self-care (01) ==
LOC: ED 13:04
DX: L03.211 Cellulitis of face (principal); R51 Headache
CPT/HCPCS: J0780; J1885

== ENCOUNTER 2018-08-26 12:03 | Emergency (ER) | payer OTHER ==
[~2018-08-26] VITALS: Ht 167.6 cm; Wt 146.2 kg
[2018-08-26 12:30] VITALS: Ht 167.6 cm; Wt 146.2 kg
[2018-08-26 13:05] LABS: BASOPHIL % 0.7 % (0-2); PLATELET COUNT 339 x10^3mcL (130-400)
[2018-08-26 13:06] LABS: RED CELL DISTRIBUTION WIDTH 18.1 % (11.5-14.5)
[2018-08-26 13:10] LABS: rbc morphology (normal/abnorm) ABNORMAL (NORMAL)
[2018-08-26 13:19] LABS: CALCIUM 8.8 mg/dL (8.5-10.1); CARBON DIOXIDE 26.4 mmol/L (21-32); CHLORIDE SERUM 107 mmol/L (98-107); CREATININE SERUM 0.7 mg/dL (0.6-1.0); GFR1 > 60 mL/min; GLUCOSE SERUM 92 mg/dL (74-106); POTASSIUM SERUM 4.5 mmol/L (3.5-5.1); SODIUM SERUM 140 mmol/L (136-145)
[2018-08-26 13:24] LABS: ALKALINE PHOSPHATASE 84 U/L (46-116); ALT/SGPT 24 U/L (14-59); AST/SGOT 14 U/L (15-37); BILIRUBIN TOTAL 0.34 mg/dL (0.20-1.00); TOTAL PROTEIN, SERUM 7.3 g/dL (6.4-8.2)
[2018-08-26 13:25] LABS: ALBUMIN 3.3 g/dL (3.4-5.0)
[2018-08-26 13:30] LABS: T3 TOTAL 1.34 ng/mL
[2018-08-26 13:32] LABS: FREE T4 1.23 ng/dL (0.76-1.46); FREE THYROXINE INDEX 3.1 ug/dL (1.4-4.5); T4(THYROXINE) 9.9 ug/dL (4.7-13.3)
[2018-08-26 15:39] VITALS: BP 137/85
== END 2018-08-26 15:39 | disposition home or self-care (01) ==
LOC: ED 12:03
PROVIDERS: Emergency Medicine
DX: N39.0 Urinary tract infection, site not specified (principal); R51 Headache; J45.909 Unspecified asthma, uncomplicated; I10 Essential (primary) hypertension; F41.9 Anxiety disorder, unspecified; K21.9 Gastro-esophageal reflux disease without esophagitis; F32.9 Major depressive disorder, single episode, unspecified; F20.9 Schizophrenia, unspecified; Z88.0 Allergy status to penicillin; Z88.2 Allergy status to sulfonamides; Z88.1 Allergy status to other antibiotic agents; Z90.49 Acquired absence of other specified parts of digestive tract
CPT/HCPCS: 36415; 84439; J1885; Q0092

== ENCOUNTER 2018-12-12 17:52 | Emergency (ER) | payer OTHER ==
[~2018-12-12] VITALS: Ht 167.6 cm; Wt 147.9 kg
[2018-12-12 18:06] VITALS: Ht 167.6 cm; Wt 147.9 kg
[2018-12-12 18:34] LABS: microscopic required? NO
[2018-12-12 18:47] LABS: urine erythrocyte NEGATIVE (NEGATIVE)
[2018-12-12 18:56] LABS: CALCIUM 7.7 mg/dL (8.5-10.1); CARBON DIOXIDE 28.6 mmol/L (21-32); CHLORIDE SERUM 108 mmol/L (98-107); CREATININE SERUM 0.7 mg/dL (0.6-1.0); GFR1 > 60 mL/min; GLUCOSE SERUM 98 mg/dL (74-106); POTASSIUM SERUM 3.9 mmol/L (3.5-5.1); SODIUM SERUM 143 mmol/L (136-145)
[2018-12-12 19:00] LABS: BASOPHIL % 1.4 % (0-2); PLATELET COUNT 304 x10^3mcL (130-400); RED CELL DISTRIBUTION WIDTH 17.9 % (11.5-14.5)
[2018-12-12 19:01] LABS: ALKALINE PHOSPHATASE 76 U/L (46-116); ALT/SGPT 22 U/L (14-59); AMYLASE 33 U/L (25-115); AST/SGOT 19 U/L (15-37); BILIRUBIN TOTAL 0.3 mg/dL (0.20-1.00); LIPASE 141 IU/L (73-393); TOTAL PROTEIN, SERUM 6.9 g/dL (6.4-8.2)
[2018-12-12 20:17] VITALS: BP 138/74
== END 2018-12-12 20:10 | disposition home or self-care (01) ==
LOC: ED 17:52
PROVIDERS: Emergency Medicine
DX: R10.9 Unspecified abdominal pain (principal); R11.10 Vomiting, unspecified; R19.7 Diarrhea, unspecified; J45.909 Unspecified asthma, uncomplicated; F41.9 Anxiety disorder, unspecified; K21.9 Gastro-esophageal reflux disease without esophagitis; Z98.890 Other specified postprocedural states; Z88.0 Allergy status to penicillin; Z88.2 Allergy status to sulfonamides
CPT/HCPCS: 36415; J1885

== ENCOUNTER 2018-12-25 16:16 | Emergency (ER) | payer OTHER ==
[~2018-12-25] VITALS: Ht 170.2 cm; Wt 146.5 kg
[2018-12-25 16:41] VITALS: Ht 170.2 cm; Wt 146.5 kg
[2018-12-25 20:33] LABS: UA SPECIFIC GRAVITY >=1.030 (1.005-1.035); microscopic required? YES; urine erythrocyte NEGATIVE (NEGATIVE)
[2018-12-25 20:35] LABS: PLATELET COUNT 294 x10^3mcL (130-400)
[2018-12-25 20:36] LABS: RED CELL DISTRIBUTION WIDTH 18.9 % (11.5-14.5)
[2018-12-25 20:40] LABS: CALCIUM 8.2 mg/dL (8.5-10.1); CARBON DIOXIDE 27.1 mmol/L (21-32); CHLORIDE SERUM 105 mmol/L (98-107); CREATININE SERUM 0.8 mg/dL (0.6-1.0); GFR1 > 60 mL/min; GLUCOSE SERUM 85 mg/dL (74-106); POTASSIUM SERUM 3.7 mmol/L (3.5-5.1); SODIUM SERUM 141 mmol/L (136-145)
[2018-12-25 20:44] LABS: ALBUMIN 3.4 g/dL (3.4-5.0); ALKALINE PHOSPHATASE 84 U/L (46-116); ALT/SGPT 41 U/L (14-59); AST/SGOT 24 U/L (15-37); BILIRUBIN TOTAL 0.4 mg/dL (0.20-1.00); TOTAL PROTEIN, SERUM 7.8 g/dL (6.4-8.2)
[2018-12-25 22:32] VITALS: BP 119/96
== END 2018-12-25 22:32 | disposition home or self-care (01) ==
LOC: ED 16:16
PROVIDERS: Emergency Medicine
DX: N12 Tubulo-interstitial nephritis, not specified as acute or chronic (principal); F31.9 Bipolar disorder, unspecified; Z88.0 Allergy status to penicillin; Z88.1 Allergy status to other antibiotic agents; Z87.442 Personal history of urinary calculi; Z90.49 Acquired absence of other specified parts of digestive tract
CPT/HCPCS: 36415; J0696; J1885; J2765

== ENCOUNTER 2020-02-02 21:56 | Emergency (ER) | payer OTHER, SELFPAY ==
[~2020-02-02] VITALS: Ht 167.6 cm; Wt 132.4 kg
[2020-02-02 21:59] VITALS: BP 153/82; Ht 167.6 cm; Wt 132.4 kg
== END 2020-02-02 22:38 | disposition home or self-care (01) ==
LOC: ED 21:56
DX: I10 Essential (primary) hypertension (principal); M79.10 Myalgia, unspecified site; R51.9 Headache, unspecified; K21.9 Gastro-esophageal reflux disease without esophagitis; Z20.828 Contact with and (suspected) exposure to other viral communicable diseases
CPT/HCPCS: U0003